=== PATIENT | female | born 1985 ===

== ENCOUNTER 2017-09-11 19:04 | Emergency (ER) | payer MEDICAID ==
[2017-09-11 19:04] VITALS: BMI 24.7
[2017-09-11 19:55] VITALS: RESP 18
--- NOTE | 2017-09-11 20:41 | ED PDOC ---
HPI: Female Pain Time Seen by Provider: 09/11/17 20:30 Chief Complaint (Nursing): Abdominal Pain Chief Complaint (Provider): vaginal spotting History Per: Patient History/Exam Limitations: no limitations Onset/Duration Of Symptoms: Days (2), Waxing/Waning Current Symptoms Are (Timing): Gone Now Quality Of Discomfort: Cramping Additional Complaint(s): 31 y/o female presents for evaluation of vaginal spotting x 2 days. Associated pelvic cramping, two episodes of nausea with vomiting this morning. Patient states she came off the Depo Provera injection in may, and had two positive tests at home today. Denies fever, chest pain, shortness of breath, palpitations, changes in bowel movements, urinary symptoms, vaginal discharge. Last Menstral Period: NA : 3 Para: 2 Miscarriage: 0 Past Medical History Reviewed: Historical Data, Nursing Documentation, Vital Signs Vital Signs: Last Vital Signs Temp 99.2 F 09/11/17 19:52 Pulse 79 09/11/17 19:52 Resp 18 09/11/17 19:52 BP 113/75 09/11/17 19:52 Pulse Ox 100 09/11/17 19:52 - Medical History PMH: Migraine Denies: Chronic Kidney Disease - Surgical History Surgical History: Endoscopy, - Family History Family History: States: No Known Family Hx - Living Arrangements Living Arrangements: With Family - Home Medications Home Medications: Ambulatory Orders Medication Instructions Recorded Multivitamin [Hexavitamin] 1 cap PO DAILY 10/14/14 Ibuprofen [Motrin] 600 mg PO DAILY PRN 03/09/15 Medroxyprogesterone Acetate 150 mg IM ONCE 03/09/15 [Depo-Provera Contraceptive] - Allergies Allergies/Adverse Reactions: Allergies Allergy/AdvReac Type Severity Reaction Status Date / Time No Known Allergies Allergy Verified 10/14/14 08:26 Review of Systems ROS Statement: Except As Marked, All Systems Reviewed And Found Negative Genitourinary Female: Positive for: Vaginal Bleeding, Pelvic Pain Physical Exam - Reviewed Nursing Documentation Reviewed: Yes Vital Signs Reviewed: Yes - Physical Exam Appears: Positive for: Well, Non-toxic, No Acute Distress Head Exam: Positive for: ATRAUMATIC, NORMAL INSPECTION, NORMOCEPHALIC Skin: Positive for: Normal Color Eye Exam: Positive for: Normal appearance ENT: Positive for: Normal ENT Inspection Cardiovascular/Chest: Positive for: Regular Rate, Rhythm Respiratory: Positive for: Normal Breath Sounds Gastrointestinal/Abdominal: Positive for: Bowel Sounds, Soft, Tenderness ( diffuse lower abdominal discomfort) Pelvic Exam: Positive for: External Exam Normal, Speculum Exam Normal, No Cerv. 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 Negative for: Active Bleeding, Blood Back: Positive for: Normal Inspection Extremity: Positive for: Normal ROM Neurologic/Psych: Positive for: Alert, Oriented - Laboratory Results Result Diagrams: 09/11/17 21:24 09/11/17 22:23 - ECG O2 Sat by Pulse Oximetry: 100 - Progress ED Course And Treament: labs, urine, ob u/s EXAM: US First Trimester, Transabdominal CLINICAL HISTORY: 31 years old, female; Pain and signs and symptoms; Lmp or gestational age (in weeks): Unknown; Other: Spotting; Other: Cramps; ; Additional info: Cramping/spotting TECHNIQUE: Real-time transabdominal obstetrical ultrasound of the maternal pelvis and a first trimester with image documentation. COMPARISON: No relevant prior studies available. FINDINGS: Gestation: Single live intrauterine gestation. heart rate of 172 beats per minute. [place]-rump length of 3.5 cm, correlating with gestational age of 10 weeks 3 days. Uterus/cervix: No subchorionic hemorrhage. No cervical dilatation or effacement. Ovaries: Normal ovaries. No adnexal masses. Free fluid: No significant free fluid. IMPRESSION: 1. Single live intrauterine gestation. 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 vitamins Return precautions given Disposition - Clinical Impression Clinical Impression: Vaginal bleeding during - Patient ED Disposition Is Patient to be Admitted: No Counseled Patient/Family Regarding: Studies Performed, Diagnosis, Need For Followup - Disposition [facility]errals[facility]] Disposition: Routine/Home Disposition Time: 23:48 Condition: STABLE Instructions: Bleeding With
[2017-09-11 21:28] LABS: BASO # 0.1 K/uL (0.0-0.2); BASO % 0.5 % (0.0-2.0); EOS # 0.2 K/uL (0.0-0.7); EOS % 1.5 % (0.0-4.0); HEMOGLOBIN 11.4 g/dL (12.0-16.0); LYMPH # 2.8 K/uL (1.0-4.3); LYMPH % 27.7 % (20.0-40.0); MEAN CELL VOLUME 86.7 fl (81.0-99.0); MEAN CORPUSCULAR HEMOGLOBIN 29.7 pg (27.0-31.0); MEAN CORPUSCULAR HGB CONC 34.2 g/dL (33.0-37.0); MEAN PLATELET VOLUME 8.3 fl (7.2-11.7); MONO # 1.9 K/uL (0.0-0.8); MONO % 18.4 % (0.0-10.0); NEUT # 5.3 K/uL (1.8-7.0); NEUT % 51.9 % (50.0-75.0); NRBC % 0.1 % (0.0-0.0); RBC 3.85 Mil/uL (3.80-5.20); RED CELL DISTRIBUTION WIDTH 12.9 % (11.5-14.5); WHITE BLOOD COUNT 10.1 K/uL (4.8-10.8)
[2017-09-11 22:41] LABS: ALBUMIN 3.6 g/dL (3.5-5.0); CALCIUM 8.9 mg/dL (8.4-10.2); GFR AFRICAN-AMERICAN > 60; GFR NON-AFRICAN AMERICAN > 60
[2017-09-11 22:48] LABS: ALT/SGPT 45 U/L (9-52); AST/SGOT 36 U/L (14-36); BLOOD UREA NITROGEN 9 mg/dl (7-17)
--- NOTE | 2017-09-11 23:46 | US ---
EXAM: US First Trimester, Transabdominal CLINICAL HISTORY: 31 years old, female; Pain and signs and symptoms; Lmp or gestational age (in weeks): Unknown; Other: Spotting; Other: Cramps; ; Additional info: Cramping/spotting TECHNIQUE: Real-time transabdominal obstetrical ultrasound of the maternal pelvis and a first trimester with image documentation. COMPARISON: No relevant prior studies available. FINDINGS: Gestation: Single live intrauterine gestation. heart rate of 172 beats per minute. [place]-rump length of 3.5 cm, correlating with gestational age of 10 weeks 3 days. Uterus/cervix: No subchorionic hemorrhage. No cervical dilatation or effacement. Ovaries: Normal ovaries. No adnexal masses. Free fluid: No significant free fluid. IMPRESSION: 1. Single live intrauterine gestation.
[2017-09-12 00:19] VITALS: BP 112/59; PULSE 72; TEMP 98.5; O2SAT 100
== END 2017-09-12 00:05 | disposition home or self-care (01) ==
LOC: H.ER 19:04
DX: O46.90 Antepartum hemorrhage, unspecified, unspecified trimester (principal)

== ENCOUNTER 2018-04-17 15:47 | Emergency (ER) | payer BC, OTHER ==
[2018-04-17 15:48] VITALS: BMI 24.7
[2018-04-17 16:24] VITALS: RESP 16
--- NOTE | 2018-04-17 17:29 | ED PDOC ---
HPI: General Adult Time Seen by Provider: 04/17/18 16:40 Chief Complaint (Nursing): Back Pain Chief Complaint (Provider): hemorrhoids History Per: Patient History/Exam Limitations: no limitations Onset/Duration Of Symptoms: Days (x5) Current Symptoms Are (Timing): Still Present Additional Complaint(s): Zeny Perez is a 32 year old female, with no significant past medical history, who was sent to the emergency department by Dr. Hay for painful hemorrhoids onset for the past x5 days. Patient states she recently gave and is currently . She is 1 year s/p stapled hemor[place] [facility] [place] took Anusol and Preparation H without any relief of symptoms. She denies any fever, chills or other medical complaints. PMD: Avni Hay Past Medical History Reviewed: Historical Data, Nursing Documentation, Vital Signs Vital Signs: Last Vital Signs Temp 98.8 F 04/17/18 16:23 Pulse 66 04/17/18 16:23 Resp 16 04/17/18 16:23 BP 139/86 04/17/18 16:23 Pulse Ox 98 04/17/18 16:23 - Medical History PMH: Migraine Denies: Chronic Kidney Disease - Surgical History Surgical History: Endoscopy, Other surgeries: stapled hemorrhoidectomy - Family History Family History: States: Unknown Family Hx - Home Medications Home Medications: Ambulatory Orders Medication Instructions Recorded Multivitamin [Hexavitamin] 1 cap PO DAILY 10/14/14 Ibuprofen [Motrin] 600 mg PO DAILY PRN 03/09/15 Medroxyprogesterone Acetate 150 mg IM ONCE 03/09/15 [Depo-Provera Contraceptive] Hydrocortisone 2.5% (Rectal) 30 applic [place] BID #1 tube 04/17/18 [Anusol-HC] Sennosides/Docusate Sodium 2 tab PO DAILY PRN #10 tablet 04/17/18 [Senokot-S Tablet] - Allergies Allergies/Adverse Reactions: Allergies Allergy/AdvReac Type Severity Reaction Status Date / Time nitrofurantoin Allergy RASH Verified 04/17/18 16:30 [From Macrobid] Review of Systems ROS Statement: Except As Marked, All Systems Reviewed And Found Negative Constitutional: Negative for: Fever, Chills Skin: Positive for: Other (hemorrhoids) Physical Exam - Reviewed Nursing Documentation Reviewed: Yes Vital Signs Reviewed: Yes - Physical Exam Appears: Positive for: In Acute Distress (mild painful ) Head Exam: Positive for: ATRAUMATIC, NORMAL INSPECTION, NORMOCEPHALIC Skin: Positive for: Normal Color, Warm, Dry Eye Exam: Positive for: Normal appearance, EOMI, PERRL Neck: Positive for: Normal, Painless ROM Rectal: Positive for: Hemorrhoids (x2 grape sized hemorrhoids, nonthrombosed with no bleeding.) Extremity: Positive for: Normal ROM (upper and lower extremities). Negative for: Deformity Neurologic/Psych: Positive for: Alert, Oriented - ECG O2 Sat by Pulse Oximetry: 98 (RA) Pulse Ox Interpretation: Normal Medical Decision Making Medical Decision Making: Time: 16:40 Initial Impression: hemorrhoids Initial Plan: --Morphine 2 mg IV --Reevaluation -Spoke with surgical assistant certified who will be in the ED at 18:00 18:35 vice president diversity discussed case with Dr. Shepard, recommends discharge home to continue Anusol and sitz baths, Tylenol or Ibuprofen for home, follow-up next week. ----- Scribe Attestation: Documented by Anil Cheng, acting as a scribe for Malinda Pillai MD. Provider Scribe Attestation: All medical record entries made by the Scribe were at my direction and personally dictated by me. I have reviewed the chart and agree that the record accurately reflects my personal performance of the history, physical exam, medical decision making, and the department course for this patient. I have also personally directed, reviewed, and agree with the discharge instructions and disposition. Disposition - Clinical Impression Clinical Impression: Hemorrhoid prolapse - Disposition Referrals: Jose M Shepard MD [Staff Provider] - Disposition: Routine/Home Disposition Time: 18:39 Additional Instructions: FOLLOW-UP WITH DR. SHEPARD NEXT WEEK. USE DONUT PILLOW FOR COMFORT. TYLENOL OR MOTRIN NEEDED FOR PAIN. Prescriptions: Hydrocortisone 2.5% (Rectal) [Anusol-HC] 30 applic MI BID #1 tube Sennosides/Docusate Sodium [Senokot-S Tablet] 2 tab PO DAILY PRN #10 tablet PRN Reason: Constipation Instructions: Hemorrhoids Forms: [facility] ([facility])
[2018-04-17] MEDS ORDERED: Morphine 4 MG/ML VIAL ONE (19:28)
[2018-04-17 19:45] VITALS: BP 129/76; PULSE 78; TEMP 98.6; O2SAT 99
== END 2018-04-17 19:40 | disposition home or self-care (01) ==
LOC: H.ER 15:47
DX: K64.8 Other hemorrhoids (principal); Z88.1 Allergy status to other antibiotic agents
CPT/HCPCS: 96372; 99282; J2270